=== PATIENT | male | born 1985 | race Caucasian/White ===

== ENCOUNTER 2024-02-07 00:38 | Emergency (ER) | payer MEDICAID, OTHER ==
[~2024-02-07] VITALS: Ht 165.1 cm; Wt 65.3 kg
--- NOTE | 2024-02-07 00:59 | NUR ---
XRAY AT PT'S BEDSIDE
[2024-02-07] MEDS ORDERED: TDAP [DIPH/PERTUSSIS/TET] 0.5 ML VIAL IM ONE (01:15)
[2024-02-07] MEDS ORDERED: HYDROCODONE/APAP 5/325MG TABLET ONE (01:15)
[2024-02-07] MEDS: TDAP [DIPH/PERTUSSIS/TET] 0.5 ML VIAL IM ONE (01:24)
[2024-02-07] MEDS: HYDROCODONE/APAP 5/325MG TABLET PO ONE (01:24)
[2024-02-07] MEDS ORDERED: CEPH500T PO (01:54)
[2024-02-07] MEDS ORDERED: CEPHALEXIN MONOHYDRATE 500 MG CAPSULE PO ONE (01:56)
[2024-02-07] MEDS: CEPHALEXIN MONOHYDRATE 500 MG CAPSULE PO ONE (02:00)
[2024-02-07 02:12] VITALS: BP 110/74; TEMP 98.4; O2SAT 98
== END 2024-02-07 02:17 | disposition home or self-care (01) ==
LOC: ER 00:42
DX: S62.636A Displaced fracture of distal phalanx of right little finger, initial encounter for closed fracture (principal); Z79.899 Other long term (current) drug therapy; Z60.2 Problems related to living alone; X58.XXXA Exposure to other specified factors, initial encounter; Y93.89 Activity, other specified; Y92.89 Other specified places as the place of occurrence of the external cause; Y99.8 Other external cause status
CPT/HCPCS: 73140-TC; 90715